=== PATIENT | female | born 1960 | race African-American/Black ===

== ENCOUNTER → 2020-03-24 | Outpatient (CLI) | payer OTHER ==
[2015-04-12 12:47] VITALS: BP 138/90
[~2020-03-24] MED LIST: ACET325T9 PO; ASPI-630 PO; CONTRAST GIVEN. MC PRN; FAMO-63 PO; IOHEXOL 300 MG/ML 100ML VIAL. IV ONE
--- NOTE | 2020-03-24 10:30 | RAD ---
CT of the abdomen compared to similar exam dated March 29, 2013 for liver mass. TECHNIQUE AND FINDINGS: Axial CT images are obtained through the abdomen both before and after administration of IV contrast. Sagittal and coronal reformations are evaluated. FINDINGS: In the right lobe the liver there is redemonstrated with 3.8 x 2.5 cm lobulated liver mass with no significant interval change in size or appearance of the mass. Enhancement pattern is consistent with a benign hemangioma, and given its stability over 7 years this diagnosis has a very high degree of confidence. This lesion is adjacent to a simple hepatic cyst which has enlarged slightly in interval, now measuring 1.8 cm. No new hepatic parenchymal abnormalities are identified. No intra or extra hepatic biliary ductal dilatation is seen. Lung bases are clear. The pancreas, spleen, bilateral adrenal glands, and bilateral kidneys are grossly unremarkable. Visualized hollow viscus structures are unremarkable. No free or loculated fluid collections are seen. No pathologic lymphadenopathy is evident. No significant osseous abnormalities. IMPRESSION: 1. Stable benign hepatic hemangioma. 2. Simple hepatic cyst adjacent to the hemangioma, for which no additional follow-up is required. 3. Otherwise normal CT of the abdomen. PQRS Compliance Statement: One or more of the following individualized dose reduction techniques were utilized for this examination: 1. Automated exposure control 2. Adjustment of the mA and/or kV according to patient size 3. Use of iterative reconstruction technique Electronically signed by: Popeye Killian MD (03/24/2020 10:27 AM) [id number]
== END ==
LOC: CT 08:15
PROVIDERS: ATTEND Physician Assistant Medical
DX: R16.0 Hepatomegaly, not elsewhere classified (principal); K76.89 Other specified diseases of liver; D18.09 Hemangioma of other sites
CPT/HCPCS: 74170; Q9967

== ENCOUNTER → 2020-11-02 | Outpatient (CLI) | payer OTHER ==
[2015-04-12 12:47] VITALS: BP 138/90
[~2020-11-02] MED LIST changes: -CONTRAST GIVEN. MC PRN; -IOHEXOL 300 MG/ML 100ML VIAL. IV ONE
--- NOTE | 2020-11-02 13:43 | RAD ---
XR LUMBAR SPINE 2-3V Clinical Indication: Reason: LOW BACK PAIN / Comparison: CT abdomen with and without contrast March 24, 2020. Findings: AP and lateral views. There are 5 lumbar type vertebral bodies. The visualized pelvic bones are intact. Bilateral L5 spondylolysis, unchanged. There is grade 1 anterolisthesis of L5 on S1. There is L5/S1 v acuum disc phenomenon. There is moderate disc space narrowing of L5/S1. The lumbar spine alignment is otherwise maintained. The other disc spaces are maintained. No acute fracture. No loss of vertebral body height. IMPRESSION: There is unchanged bilateral L5 spondylolysis and grade 1 anterolisthesis of L5 on S1. Electronically signed by: Rey Regalado MD (11/02/2020 12:24 PM) DAVID
== END ==
LOC: RAD 08:49
PROVIDERS: ATTEND Family Medicine
DX: M43.06 Spondylolysis, lumbar region (principal); M48.07 Spinal stenosis, lumbosacral region; Z02.71 Encounter for disability determination
CPT/HCPCS: 72100